=== PATIENT | male | born 1995 | race Caucasian/White ===

== ENCOUNTER 2019-06-10 13:19 | Emergency (ER) | payer BC ==
[~2019-06-10] VITALS: Ht 180.3 cm; Wt 70.7 kg
[~2019-06-10 13:19] MED LIST: ADDE30 PO
[2019-06-10 13:27] VITALS: BP 130/72; PULSE 77; RESP 16; Ht 180.3 cm; Wt 70.7 kg
== END 2019-06-10 13:51 | disposition home or self-care (01) ==
LOC: E/R 13:19
DX: Z76.0 Encounter for issue of repeat prescription (principal)
CPT/HCPCS: 99281